=== PATIENT | female | born 1950 | race Hispanic/Latino ===

== ENCOUNTER 2017-11-07 21:14 | Emergency (ER) | payer OTHER, MEDICARE ==
[2017-11-08] MEDS ORDERED: LORAZEPAM 1 MG TABLET ONE (01:09)
== END 2017-11-08 03:46 | disposition short-term general hospital (02) ==
LOC: EDH 21:14
DX: S02.32XA Fracture of orbital floor, left side, initial encounter for closed fracture (principal); M62.89 Other specified disorders of muscle; I10 Essential (primary) hypertension; E11.9 Type 2 diabetes mellitus without complications; W01.198A Fall on same level from slipping, tripping and stumbling with subsequent striking against other object, initial encounter; Y93.01 Activity, walking, marching and hiking; Y92.89 Other specified places as the place of occurrence of the external cause; Y99.8 Other external cause status
CPT/HCPCS: 70450; 70486